=== PATIENT | male | born 1935 | race Caucasian/White ===

== ENCOUNTER → 2017-01-04 | Outpatient (CLI) | payer OTHER | LOC: FIMAGING 08:06 | PROVIDERS: ATTEND Physician Assistant | DX: E05.90 Thyrotoxicosis, unspecified without thyrotoxic crisis or storm (principal) | CPT/HCPCS: 78014; A9516 ==

== ENCOUNTER → 2017-01-15 | Outpatient (CLI) | payer OTHER ==
[~2017-01-15] MED LIST: GADOBUTROL 10 ML VIAL IVP ONE
[2017-01-15 14:59] LABS: CREATININE 1.1 mg/dL (0.7-1.3); GLOMERULAR FILTRATION RATE > 60
== END ==
LOC: FIMAGING 14:05
PROVIDERS: ATTEND Physician Assistant
DX: M47.892 Other spondylosis, cervical region (principal); M99.71 Connective tissue and disc stenosis of intervertebral foramina of cervical region; M25.78 Osteophyte, vertebrae; M89.38 Hypertrophy of bone, other site; M50.93 Cervical disc disorder, unspecified, cervicothoracic region
CPT/HCPCS: 72156; A9585

== ENCOUNTER → 2017-01-18 | Outpatient (CLI) | payer OTHER | LOC: FIMAGING 10:31 | PROVIDERS: ATTEND Physician Assistant | DX: E04.1 Nontoxic single thyroid nodule (principal); E05.90 Thyrotoxicosis, unspecified without thyrotoxic crisis or storm ==

== ENCOUNTER → 2017-01-24 | Outpatient (CLI) | payer OTHER ==
[~2017-01-24] MED LIST changes: -GADOBUTROL 10 ML VIAL IVP ONE; +LIDOCAINE 1% 30 ML SDV ONE; +NA BICARBONATE 50 MEQ/50 ML VIAL ONE
== END ==
LOC: FIMAGING 12:04
PROVIDERS: ATTEND Physician Assistant
PROC: 0GBH3ZX Excision of Right Thyroid Gland Lobe, Percutaneous Approach, Diagnostic (ICD-10-PCS; principal; 2017-01-24)
DX: E04.1 Nontoxic single thyroid nodule (principal)

== ENCOUNTER → 2018-02-02 | Outpatient (CLI) | payer OTHER | LOC: FIMAGING 09:49 | PROVIDERS: ATTEND Physician Assistant Medical | DX: M54.2 Cervicalgia (principal); M53.2X2 Spinal instabilities, cervical region ==

== ENCOUNTER 2018-06-15 10:42 | Emergency (ER) | payer OTHER ==
--- NOTE | 2018-06-15 11:08 | EDPHY ---
H & P Stated Complaint: Tripped on sidewalk at 100am, injury to left side of face. Time Seen by Provider: 06/15/18 11:03 HPI/ROS: CHIEF COMPLAINT: Facial injury HISTORY OF PRESENT ILLNESS: 83-year-old male with no anticoagulant use arrives via private vehicle complaining of facial injury after he was going for walks morning, tripped on the sidewalk fell forward impacting his face. His glasses impacted his face sustaining laceration to the left infraorbital region. No loss of consciousness. No alcohol or drug use. 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 Denies : Peripheral paresthesia, weakness, numbness, chest pain or trauma, back pain or trauma, abdominal pain or trauma. This was a mechanical incident , no syncope. PRIMARY CARE PROVIDER:DELISA Bae REVIEW OF SYSTEMS: 10 systems reviewed and negative with the exception of the elements mentioned in the history of present illness PAST MEDICAL/SURGICAL HISTORY: no anticoagulant use, SOCIAL HISTORY: denies alcohol use at time of incident PHYSICAL EXAM 1) GENERAL: Well-developed, well-nourished, alert and oriented. Appears to be in no acute distress. Answering questions appropriately. 2) HEAD: Normocephalic, atraumatic 3) HEENT: Pupils equal, round, reactive to light bilaterally. Negative hyphema. No proptosis. Extraocular movements are present and do not elicit abnormal gaze or diplopia on exam. No facial crepitus Left infraorbital laceration measuring 5 cm. Negative Horners. Nasopharynx, oropharynx, clear. No deformity or angulation of nose. No septal hematoma. No rhinorrhea. No oral trauma. Ears bilaterally with normal tympanic membranes. No hemotympanum. No fluid or blood in the external auditory canal. No raccoon eyes. No Gary sign. Teeth are normally aligned with no gross malocclusion, TMJ bilaterally nontender, facial bones nontender including the zygomatic arch, maxilla mandible. 4) NECK: No cervical collar is on. Posterior cervical spine is nontender, no stepoff, no effusion. Full range of motion which does not elicit any midline cervical spine pain, no posterior midline tenderness, no step-off. 5) LUNGS: Clear to auscultation bilaterally, no wheezes, no rhonchi, no retractions. No obvious signs of trauma. No chest wall pain. No flaring, no grunting. Moving symmetrically. No crepitus. 6) HEART: [Regular rate and rhythm, 7) ABDOMEN: No guarding, no rebound, no focal tenderness, no peritoneal signs, no signs of trauma, no ecchymosis 8) MUSCULOSKELETAL: Moving all extremities, no focal areas of tenderness, no obvious trauma. 9) BACK: No midline vertebral tenderness, no fluctuance, no step-off, no obvious trauma, no visual or palpable abnormality. 10) SKIN: No laceration. No abrasion DIFFERENTIAL DIAGNOSIS: Not necessarily in any particular order, my differential diagnosis includes, but is not limited to, concussion, skull fracture, intraparenchymal contusion, subarachnoid, subdural and epidural hematoma. The patient understands that this diagnosis is provisional and can never be 100% accurate. - Personal History Current Tetanus Diphtheria and Acellular Pertussis (TDAP): Unsure - Medical/Surgical History Hx Asthma: No Hx Chronic Respiratory Disease: No Hx Diabetes: No Hx Cardiac Disease: No Hx Renal Disease: No Hx Cirrhosis: No Hx Alcoholism: No Hx HIV/AIDS: No Hx Splenectomy or Spleen Trauma: No Other PMH: HTN, Spine surgery 2002, Cervical surgery 2002, testicular cyst, shoulder surgery 2006, appy 2007, toe surgery 2012, TURP - Social History Smoking Status: Never smoked Constitutional: Initial Vital Signs Temperature (C) 36.7 C 06/15/18 10:47 Heart Rate 67 06/15/18 10:47 Respiratory Rate 16 06/15/18 10:47 Blood Pressure 149/81 H 06/15/18 10:47 O2 Sat (%) 96 06/15/18 10:47 O2 Delivery Mode Room Air Allergies/Adverse Reactions: prednisone Allergy (Severe, Verified 03/20/15 10:15) Other-Enter Comments Home Medications: Medication Instructions Recorded Cholecalciferol (Vitamin D3) 4,000 unit PO DAILY 03/20/15 [Vitamin D3] Famotidine [Pepcid 20 MG (*)] 20 mg PO BID PRN 03/20/15 Gabapentin [Neurontin 100 MG (*)] 200 mg PO HS 03/20/15 Metoprolol Succinate Xr [Toprol Xl 25 mg PO HS 03/20/15 100 mg (*)] Niacin [Slo-Niacin] 500 mg PO HS 03/20/15 Tears/Hypromellose [Natural 1 - 2 drops EACHEYE PRN PRN 03/20/15 Balance] Triamterene/Hctz 75/50 [Maxzide 0.5 tab PO DAILY 03/20/15 75-50 mg Tab (*)] Cephalexin [Keflex] 500 mg PO TID 7 Days cap 06/15/18 Medical Decision Making - Diagnostics Imaging Results: Imaging Impressions Cervical Spine CT 06/15/18 11:08 Impression: 1. No evidence for acute intracranial abnormality. 2. Mild periventricular and deep hemispheric white matter change that can be seen with small vessel ischemic disease. 3. Comminuted displaced left inferior orbital wall fracture and question a subtle nondisplaced medial orbital wall fracture, as above. CT cervical spine without contrast History: Trauma. Fall. Pain. Comparisons: Radiograph MRI 02 Feb 2018. Technique: 1.5-mm helical images were obtained of the cervical spine without contrast. Multiplanar reformation was performed. Radiation dose reduction technique was utilized. Findings: Postsurgical changes are seen of laminectomy at C3 through C7. Calcification is seen in the ligament of nucha. Fusion of the facets at C3-C4 bilaterally and C5-C6. Reversal of the normal lordotic curvature. 3 mm of anterolisthesis of C3 on C4. 3 mm retrolisthesis of C6 on C7. Subcortical cysts and erosions are seen at the dens. Degenerative change is seen in the anterior arch of C1 articulation with the dens and soft tissue density posterior to the dens and erosion of the posterior dens with moderate spinal canal encroachment, as seen on the prior MRI. C2-C3 level demonstrates uncovertebral joint hypertrophy and spurring and facet arthropathy causing moderate to severe bilateral neural foraminal narrowing. There is moderate central spinal canal narrowing. C3-C4 level demonstrates uncovertebral joint hypertrophy and spurring and facet arthropathy with moderate to severe bilateral neural foraminal narrowing. C4-C5 level demonstrates uncovertebral joint hypertrophy and spurring and facet arthropathy bilaterally, more predominant on the left. Severe left and moderate right neural foraminal narrowing. C5-C6 level demonstrates uncovertebral joint hypertrophy and spurring and facet arthropathy bilaterally, with moderate to severe bilateral neural foraminal narrowing. C6-C7 level demonstrates uncovertebral joint hypertrophy and spurring bilaterally and a broad-based annular bulge. There is facet arthropathy bilaterally. There is severe left and moderate right neural foraminal narrowing. C7-T1 level demonstrates a broad-based annular bulge and uncovertebral joint hypertrophy and spurring and facet arthropathy bilaterally, with moderate to severe bilateral neural foraminal narrowing, left greater than right. Impression: 1. No evidence for acute fracture of the cervical spine. 2. 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 Postsurgical changes as above. Results called and discussed with Dr. Reginald Flores on June 15, [address] at [address] 06/15/18 11:08 Impression: 1. No evidence for acute intracranial abnormality. 2. Mild periventricular and deep hemispheric white matter change that can be seen with small vessel ischemic disease. 3. Comminuted displaced left inferior orbital wall fracture and question a subtle nondisplaced medial orbital wall fracture, as above. CT cervical spine without contrast History: Trauma. Fall. Pain. Comparisons: Radiograph MRI 02 Feb 2018. Technique: 1.5-mm helical images were obtained of the cervical spine without contrast. Multiplanar reformation was performed. Radiation dose reduction technique was utilized. Findings: Postsurgical changes are seen of laminectomy at C3 through C7. Calcification is seen in the ligament of nucha. Fusion of the facets at C3-C4 bilaterally and C5-C6. Reversal of the normal lordotic curvature. 3 mm of anterolisthesis of C3 on C4. 3 mm retrolisthesis of C6 on C7. Subcortical cysts and erosions are seen at the dens. Degenerative change is seen in the anterior arch of C1 articulation with the dens and soft tissue density posterior to the dens and erosion of the posterior dens with moderate spinal canal encroachment, as seen on the prior MRI. C2-C3 level demonstrates uncovertebral joint hypertrophy and spurring and facet arthropathy causing moderate to severe bilateral neural foraminal narrowing. There is moderate central spinal canal narrowing. C3-C4 level demonstrates uncovertebral joint hypertrophy and spurring and facet arthropathy with moderate to severe bilateral neural foraminal narrowing. C4-C5 level demonstrates uncovertebral joint hypertrophy and spurring and facet arthropathy bilaterally, more predominant on the left. Severe left and moderate right neural foraminal narrowing. C5-C6 level demonstrates uncovertebral joint hypertrophy and spurring and facet arthropathy bilaterally, with moderate to severe bilateral neural foraminal narrowing. C6-C7 level demonstrates uncovertebral joint hypertrophy and spurring bilaterally and a broad-based annular bulge. There is facet arthropathy bilaterally. There is severe left and moderate right neural foraminal narrowing. C7-T1 level demonstrates a broad-based annular bulge and uncovertebral joint hypertrophy and spurring and facet arthropathy bilaterally, with moderate to severe bilateral neural foraminal narrowing, left greater than right. Impression: 1. No evidence for acute fracture of the cervical spine. 2. 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 Postsurgical changes as above. Results called and discussed with Dr. Reginald Flores on June 15, 2018 at 1220 hours. Procedures: Procedure: Laceration repair. I explained the indications, risks and benefits for both laceration repair and anesthetic administration. Verbal consent was obtained from the patient. The laceration on the left infraorbital region was anesthetized using 0.5% bupivicaine with epinephrine. After anesthetic administered the patient was observed for a period of time and had no apparent adverse effects. The wound was cleaned, prepped, draped in normal sterile fashion and explored to its base. No foreign body seen, no foreign bodies palpated. The wound was repaired with 2 simple interrupted 6 0 Vicryl sutures and 16 simple interrupted 6 0 Prolene sutures. The wound repair was complex. The procedure was performed by myself. Patient has been informed that scarring will occur, although efforts have been made to minimize this. ED Course/Re-evaluation: 1:11 p.m.: Phone consultation with on-call ENT PA Mayela Decker regarding the patient's orbital wall fracture who agrees with discharging patient, having him follow up with Dr. Alejandro Hull next week (today is Monday). His wound will be closed primarily in the ER, will be started on prophylactic antibiotics. Patient has no evidence of entrapment either radiographically or clinically. 3:11 p.m.: Patient was being discharged and as he was walking out he approached the front desk assistant staff inquiring about new onset left visual field floaters present for the past 10 min only. This was present after I had last evaluated the patient. Patient was then brought back to his initial room, room 12, and I re examined him . He has no evidence of hyphema, no evidence of traumatic mydriasis, no proptosis, extraocular movements are present without abnormal gaze or diplopia, visual acuity was 20/40 left eye, 20/25, right eye, 20/30 both eyes. The patient has had previous cataract surgery with Dr. Binh Caballero. At this time I spoke with Dr. Kulwant Sun who agrees to see the patient the office in the next few minutes. Patient is agreeable with this plan. - Data Points Medications Given: Discontinued Medications Cephalexin HCl (Keflex) 500 mg PO EDNOW ONE PRN Reason: Protocol Stop: 06/15/18 13:15 Last Admin: 06/15/18 13:47 Dose: 500 mg Diphtheria/Tetanus/Acell Pertussis (Boostrix) 0.5 ml IM .ONCE ONE Stop: 06/15/18 13:44 Last Admin: 06/15/18 13:45 Dose: 0.5 ml Morphine Sulfate (Morphine) 4 mg IVP EDNOW ONE Stop: 06/15/18 11:29 Last Admin: 06/15/18 11:58 Dose: Not Given Morphine Sulfate (Morphine) 2 mg IVP EDNOW ONE Stop: 06/15/18 12:16 Last Admin: 06/15/18 12:20 Dose: 2 mg Morphine Sulfate (Morphine) 2 mg IVP EDNOW ONE Stop: 06/15/18 13:40 Last Admin: 06/15/18 13:46 Dose: 2 mg Ondansetron HCl (Zofran) 4 mg IVP EDNOW ONE Stop: 06/15/18 11:45 Last Admin: 06/15/18 11:58 Dose: Not Given Ondansetron HCl (Zofran) 4 mg IVP EDNOW ONE Stop: 06/15/18 12:16 Last Admin: 06/15/18 12:20 Dose: 4 mg Departure - Departure Disposition: Home, Routine, Self-Care Clinical Impression: Orbital wall fracture Qualifiers: Encounter type: initial encounter Fracture type: closed Qualified Code(s): S02.80XA - Fracture of other specified skull and facial bones, unspecified side , initial encounter for closed fracture Facial laceration Qualifiers: Encounter type: initial encounter Qualified Code(s): S01.81XA - Laceration without foreign body of other part of head, initial encounter Condition: Good Instructions: Care For Your Stitches (ED), Laceration (ED), Facial Fracture (ED ) Additional Instructions: Do not blow your nose. Take your pain medication and antibiotics as directed. Your stitches need to be removed in 5 days. You may return to the ER or follow up with DELISA Bae Referrals: Alejandro Hull MD [Medical Doctor] - 06/18/18 Kulwant Sun MD [Medical Doctor] - As per Instructions (Go directly to Dr. Kulwant Sun' office) Prescriptions: Cephalexin [Keflex] 500 mg PO TID 7 Days cap
[2018-06-15] MEDS ORDERED: ONDANSETRON 4 MG/2 ML VIAL IVP ONE ×2 (11:44→12:15)
[2018-06-15] MEDS ORDERED: CEPHALEXIN 500 MG CAP PO ONE (13:14)
[2018-06-15] MEDS ORDERED: TDAP ADULT 0.5 ML INJ (BOOSTRIX) IM ONE (13:43)
[2018-06-15 14:31] VITALS: BP 146/82
== END 2018-06-15 14:51 | disposition home or self-care (01) ==
PROC: 0HQ1XZZ Repair Face Skin, External Approach (ICD-10-PCS; principal; 2018-06-15)
DX: S01.81XA Laceration without foreign body of other part of head, initial encounter (principal); S02.32XA Fracture of orbital floor, left side, initial encounter for closed fracture; W10.1XXA Fall (on)(from) sidewalk curb, initial encounter; Y93.01 Activity, walking, marching and hiking; I10 Essential (primary) hypertension
CPT/HCPCS: 12014; 70450; 72125; 90715; 96374; 96375; 96376; 99285; J2270; J2405

== ENCOUNTER → 2018-09-14 | Outpatient (CLI) | payer OTHER ==
[~2018-09-14] MED LIST changes: +GADOBUTROL 10 ML VIAL IVP ONE; -LIDOCAINE 1% 30 ML SDV ONE; -NA BICARBONATE 50 MEQ/50 ML VIAL ONE
== END ==
LOC: FIMAGING 15:45
PROVIDERS: ATTEND Nurse Practitioner Family
DX: H53.2 Diplopia (principal)
CPT/HCPCS: 70543; A9585; 82565-PO

== ENCOUNTER → 2019-02-27 | Outpatient (CLI) | payer OTHER | LOC: FIMAGING 13:05 ==